=== PATIENT | male | born 1960 | race Caucasian/White ===

== ENCOUNTER → 2019-06-27 14:57 | Outpatient (CLI) | payer BC, SELFPAY ==
--- NOTE | ~2019-06-27 | XR_ITS ---
EXAMINATION: XR chest 2V EXAM DATE: 06/27/2019 15:09 INDICATION: Acute upper respiratory infection. TECHNIQUE: Frontal and lateral projections of the chest obtained and reviewed. Comparison is made to prior examination from 02/04/2018. FINDINGS: The lungs are clear. There are no pleural effusions. The cardiomediastinal silhouette is within normal limits. There is no pneumothorax suspected. The bones and soft tissues are unremarkab le. IMPRESSION: No acute cardiopulmonary findings. Reviewed, dictated and finalized at location B.
== END ==
PROVIDERS: Visit Provider Internal Medicine
DX: J06.9 Acute upper respiratory infection, unspecified (principal)
CPT/HCPCS: 71046